=== PATIENT | female | born 1985 | race Caucasian/White ===

== ENCOUNTER 2021-07-05 22:59 | Inpatient (IN) | payer BC ==
[2021-07-05 23:40] VITALS: BMI 29.7
[2021-07-05] MEDS ORDERED: hydrALAZINE 20 MG/ML VIAL SLOW IVP PRN (23:47)
[2021-07-05] MEDS ORDERED: Ibuprofen 800 MG TAB PO PRN (23:47)
[2021-07-05] MEDS ORDERED: Lidocaine 1% (PF) 30 ML VIAL SC PRN (23:47)
[2021-07-05] MEDS ORDERED: Promethazine HCl 25 MG/ML VIAL IM PRN (23:47)
[2021-07-05] MEDS ORDERED: Ondansetron PF 4 MG/2 ML Vial IVP PRN (23:47)
[2021-07-05] MEDS ORDERED: Acetaminophen 500 MG TAB PO PRN (23:47)
[2021-07-05] MEDS ORDERED: Butorphanol Tartrate 1 MG/ML VIAL SLOW IVP PRN (23:47)
[2021-07-05] MEDS ORDERED: Misoprostol 200 MCG TAB PR PRN (23:47)
[2021-07-06] MEDS ORDERED: Lactated Ringer's 1,000 ML IV SCH (00:01)
[2021-07-06] MEDS ORDERED: Fentanyl 2 mcg/Bup 0.1% Cadd 100 ML ONE (00:13)
[2021-07-06 00:27] LABS: Hemoglobin 13.3 g/dL (12.0-15.5); Mean Corpuscular HGB CONC 34.3 g/dL (32.0-36.0); Mean Corpuscular Hemoglobin 30.8 pg (27.0-33.0); Mean Corpuscular Volume 89.8 fl (81.6-98.3); Mean Platelet Volume 9.2 fl (7.4-10.4); Platelet Count 239 10x3/uL (150-450); RBC Distribution Width 13.4 % (11.5-14.5); Red Blood Cell (RBC) Count 4.32 10x6/uL (3.90-5.03); White Blood Cell (WBC) Count 13.2 10x3/uL (3.5-10.5)
[2021-07-06] MEDS ORDERED: Acetaminophen 325 MG TAB PO PRN (00:58)
[2021-07-06] MEDS ORDERED: Hydrocerin (Eucerin) Cream 120 gm Jar TOP PRN (00:58)
[2021-07-06] MEDS ORDERED: Promethazine HCl 25 MG/ML VIAL IM PRN (00:58)
[2021-07-06] MEDS ORDERED: Lactated Ringer's 500 ML IV PRN (00:58)
[2021-07-06] MEDS ORDERED: Naloxone HCl 0.4 mg/ml Vial IVP PRN ×2 (00:58)
[2021-07-06] MEDS ORDERED: diphenhydrAMINE 50 MG/ML VIAL IVP PRN (00:58)
[2021-07-06] MEDS ORDERED: ePHEDrine Sulfate 50 MG/10 ML VIAL SLOW IVP PRN (00:58)
[2021-07-06] MEDS ORDERED: Ondansetron PF 4 MG/2 ML Vial IVP PRN (00:58)
[2021-07-06] MEDS ORDERED: Fentanyl 2 mcg/Bupivacaine 0.1% Cassette 100 ML EPIDURAL SCH (01:00)
[2021-07-06] MEDS ORDERED: Communication Order-Pharmacy FS SCH (01:00)
[2021-07-06 01:07] LABS: Hep B Surf Ag Non-Reactive S/CO (NonReactive); Syphilis Antibody Nonreactive (Nonreactive); Syphilis Antibody Index 0.05 S/CO (<1.00 Non-Reactive)
[2021-07-06] MEDS: NS w/ Oxytocin 30 units 500 ML IV SCH ×2 (01:11→02:33)
[2021-07-06] MEDS ORDERED: Benzocaine-Menthol 82.5 ML CAN TOP PRN (03:46)
[2021-07-06] MEDS ORDERED: Bisacodyl 10 MG SUPP PR PRN (03:46)
[2021-07-06] MEDS ORDERED: Misoprostol 200 MCG TAB VAG PRN (03:46)
[2021-07-06] MEDS ORDERED: Lanolin Ointment 7 GM TUBE TOP PRN (03:46)
[2021-07-06] MEDS ORDERED: Milk Of Magnesia 30 ML UDCUP PO PRN (03:46)
[2021-07-06] MEDS ORDERED: Boostrix 0.5 ML (Tdap) VIAL IM ONE (03:46)
[2021-07-06] MEDS ORDERED: HYDROcodone/Acetaminophen 5/325 mg Tablet PO PRN ×2 (03:46)
[2021-07-06] MEDS ORDERED: hydrALAZINE 20 MG/ML VIAL SLOW IVP PRN (03:46)
[2021-07-06] MEDS ORDERED: NS w/ Oxytocin 30 units 500 ML IV SCH (04:00)
[2021-07-06] MEDS: Ibuprofen 800 MG TAB PO SCH ×3 (06:28→21:16)
[2021-07-06 07:59] LABS: HIV (1/2) Antibody/Antigen Non-Reactive (NonReactive); HIV 1/2 INDEX 0.14 S/CO (<1.00)
[2021-07-06] MEDS: Ferrous Sulfate 325 MG TAB PO SCH ×2 (08:14→16:11)
[2021-07-06] MEDS: Docusate Calcium (SURFAK) 240 MG CAP PO SCH ×2 (09:28→21:16)
[2021-07-06] MEDS: Prenatal Vitamin 1 TAB PO SCH (09:28)
[2021-07-06] MEDS: Levothyroxine Sodium 88 MCG TAB PO SCH (09:29)
[2021-07-07] MEDS: Levothyroxine Sodium 88 MCG TAB PO SCH (04:37)
[2021-07-07] MEDS: Ibuprofen 800 MG TAB PO SCH (04:37)
[2021-07-07] MEDS: Ferrous Sulfate 325 MG TAB PO SCH (08:33)
[2021-07-07] MEDS: Prenatal Vitamin 1 TAB PO SCH (08:34)
[2021-07-07] MEDS: Docusate Calcium (SURFAK) 240 MG CAP PO SCH (08:34)
[2021-07-07 08:51] VITALS: BP 114/72; TEMP 97.3
== END 2021-07-07 10:50 | disposition home or self-care (01) | DRG 807 ==
LOC: CSHLD/OP 22:59 → CSHLD 23:48 → UNDOADMIN 07-06 01:32 → CSHPP 07-06 05:24 → CSHLD 07-06 05:24 → UNDODISIN 07-07 10:50
PROVIDERS: ADMIT Obstetrics & Gynecology; ATTEND Obstetrics & Gynecology
PROC: 10E0XZZ Delivery of Products of Conception, External Approach (ICD-10-PCS; principal; 2021-07-06)
DX: O99.284 Endocrine, nutritional and metabolic diseases complicating childbirth (principal); Z37.0 Single live birth; Z3A.38 38 weeks gestation of pregnancy; E03.9 Hypothyroidism, unspecified; F42.9 Obsessive-compulsive disorder, unspecified; O99.344 Other mental disorders complicating childbirth
CPT/HCPCS: 36415; 85027; 86780; 86850; 86900; 86901; 87340; 87389; J2001; J2590

== ENCOUNTER 2024-07-04 13:58 | Outpatient (CLI) | payer BC ==
[2024-07-04 14:36] LABS: #Basophils 0.04 10x3/uL (0.0-0.2); #Eosinophils 0.12 10x3/uL (0.0-0.5); #Neutrophils 4.51 10x3/uL (1.5-8.4); %Basophils 0.6 % (0.0-2.0); %Eosinophils 1.8 % (0.0-6.0); %Lymphocytes 22.8 % (18.0-47.0); %Monocytes 6.1 % (0.0-10.0); %Neutrophils 68.4 % (40.0-75.0); Hematocrit 34.1 % (34.9-44.5); Hemoglobin 11.8 g/dL (12.0-15.5); Mean Corpuscular HGB CONC 34.6 g/dL (32.0-36.0); Mean Corpuscular Hemoglobin 31.6 pg (27.0-33.0); Mean Corpuscular Volume 91.2 fL (81.6-98.3); Mean Platelet Volume 8.3 fL (7.4-10.4); Platelet Count 237 10x3/uL (150-450); RBC Distribution Width 11.6 % (11.5-14.5); Red Blood Cell (RBC) Count 3.74 10x6/uL (3.90-5.03); White Blood Cell (WBC) Count 6.6 10x3/uL (3.5-10.5)
[2024-07-04 15:24] LABS: Anion Gap 12 mmol/L (10-20); BUN (Urea Nitrogen) 16 mg/dL (7.0-18.7); Calc. Creatinine Clearance 0 mL/min (70-130); Calcium 9.3 mg/dL (7.8-10.44); Carbon Dioxide 23 mmol/L (22-29); Chloride 107 mmol/L (98-107); Estimated GFR 67; Glucose 83 mg/dL (70-105); Potassium 4.3 mmol/L (3.5-5.1); Sodium 138 mmol/L (136-145)
== END 2024-07-04 13:59 | disposition home or self-care (01) ==
LOC: CSHLAB 13:58
PROVIDERS: ATTEND Specialist
DX: Z01.812 Encounter for preprocedural laboratory examination (principal); K40.90 Unilateral inguinal hernia, without obstruction or gangrene, not specified as recurrent
CPT/HCPCS: 80048; 85025

== ENCOUNTER 2024-07-07 05:45 | Day surgery (SDC) | payer BC ==
[2024-07-04 14:16] VITALS: BMI 21.0
[2024-07-07] MEDS ORDERED: Ketorolac Tromethamine 30 MG (1 mL) VIAL ONE (06:20)
[2024-07-07] MEDS ORDERED: Acetaminophen 500 MG TAB ONE (06:20)
[2024-07-07] MEDS ORDERED: PROPOFOL 20 ML ONE (07:02)
[2024-07-07] MEDS ORDERED: Rocuronium Bromide 10 MG/ML (10ML VIAL) ONE (07:02)
[2024-07-07] MEDS ORDERED: Ondansetron PF 4 MG/2 ML Vial ONE (07:02)
[2024-07-07] MEDS ORDERED: Lidocaine 2% PF 5 ML VIAL ONE (07:02)
[2024-07-07] MEDS ORDERED: Lidocaine 4% PF 5 ML AMP ONE (07:02)
[2024-07-07] MEDS ORDERED: Dexamethasone 4 mg/ml Vial ONE (07:02)
[2024-07-07] MEDS ORDERED: fentaNYL 50 mcg/mL 1 mL Vial ONE ×2 (07:03→08:02)
[2024-07-07] MEDS ORDERED: Bupivacaine/Epinephrine 0.25% 30 ML VIAL ONE (07:13)
[2024-07-07] MEDS ORDERED: CEFAZOLIN 2 GM VIAL ONE (07:13)
[2024-07-07] MEDS ORDERED: Midazolam HCl 2 mg/2 ml Vial ONE (07:18)
[2024-07-07] MEDS ORDERED: Famotidine/PF 20 mg/2ml Vial ONE (07:18)
[2024-07-07] MEDS ORDERED: Scopolamine 1 mg/72 hour Patch ONE (07:18)
[2024-07-07] MEDS ORDERED: PHENYLEPHRINE-NS 100 MCG/ML 10 ML SYRINGE ONE (07:54)
[2024-07-07] MEDS ORDERED: SUGAMMADEX SODIUM 200 MG/2 ML VIAL ONE (07:58)
[2024-07-07] MEDS ORDERED: HYDROcodone/Acetaminophen 5/325 mg Tablet ONE (09:19)
== END 2024-07-07 10:16 | disposition home or self-care (01) ==
LOC: CSHSDC 05:45
PROVIDERS: ATTEND Specialist
PROC: 0FT44ZZ Resection of Gallbladder, Percutaneous Endoscopic Approach (ICD-10-PCS; principal; 2024-07-07)
DX: K81.1 Chronic cholecystitis (principal); Q44.1 Other congenital malformations of gallbladder; E78.5 Hyperlipidemia, unspecified; E03.9 Hypothyroidism, unspecified; I12.9 Hypertensive chronic kidney disease with stage 1 through stage 4 chronic kidney disease, or unspecified chronic kidney disease; N18.9 Chronic kidney disease, unspecified; M10.9 Gout, unspecified; Z90.89 Acquired absence of other organs; Z79.890 Hormone replacement therapy; Z86.711 Personal history of pulmonary embolism; Z87.59 Personal history of other complications of pregnancy, childbirth and the puerperium; Z98.890 Other specified postprocedural states; Z79.899 Other long term (current) drug therapy
CPT/HCPCS: C1781; J1100; J1885; J2250; J2405; J2704; J3010; J3490